=== PATIENT | male | born 1970 | race African-American/Black ===

== ENCOUNTER 2020-05-02 22:58 | Inpatient (IN) | payer MEDICAID ==
[~2020-05-02] VITALS: Ht 185.4 cm; Wt 149.7 kg
[2020-05-02 23:54] LABS: BASOPHILS % 1.2 % (0.0-2.0); HEMOGLOBIN. 14.8 g/dL (14.0-18.0); LYMPHOCYTES % 45.7 % (20.0-50.0); MEAN CORPUSCULAR HEMOGLOBIN 31.6 pg (28.0-32.0); MEAN CORPUSCULAR VOLUME 94.2 fL (80.0-94.0); MONOCYTES % 6.2 % (2.0-8.0); NEUTROPHILS % 42.9 % (40.0-76.0); PLATELET 251 x1000/uL (130-400); RED BLOOD CELL COUNT 4.67 mill/uL (4.7-6.1); RED CELL DISTRIBUTION WIDTH 13.5 % (11.6-14.6)
[2020-05-02 23:59] LABS: CHLORIDE 107 mEq/L (98-107)
[2020-05-03] MEDS ORDERED: NITROGLYCERIN OINT 1GM/INCH UDPKT TD ONE
[2020-05-03] MEDS ORDERED: ASPIRIN 325MG EC TABLET PO ONE
[2020-05-03] MEDS ORDERED: METOPROLOL TARTRATE 25MG TABLET PO ONE (01:00)
[2020-05-03 09:03] VITALS: BP 164/94
[2020-05-03] MEDS ORDERED: HYDROCODONE/ACETAMINOPHEN 5/325MG TABLET PO PRN (09:15)
[2020-05-03] MEDS ORDERED: CLONIDINE 0.1MG TABLET PO PRN (09:15)
[2020-05-03] MEDS ORDERED: ACETAMINOPHEN 325MG TABLET PO PRN ×2 (09:15)
[2020-05-03] MEDS ORDERED: ONDANSETRON HCL 4MG/2ML INJ IV PRN (09:15)
[2020-05-03] MEDS ORDERED: IPRATROPIUM/ALBUTEROL 0.5-3(2.5)MG/3ML NEB HHN PRN (09:15)
[2020-05-03] MEDS ORDERED: LORAZEPAM 0.5MG TABLET PO PRN (09:15)
[2020-05-03] MEDS ORDERED: DOCUSATE SODIUM 100MG CAPSULE PO PRN (09:15)
[2020-05-03 09:30] VITALS: BP 164/94
[2020-05-03 12:00] VITALS: BP 155/91
[2020-05-03 12:05] VITALS: BP 155/91
[2020-05-03] MEDS: ASPIRIN 81MG TABLET PO SCH (13:12)
[2020-05-03] MEDS: AMLODIPINE 5MG TABLET PO SCH (13:13)
[2020-05-03 16:08] VITALS: BP 142/85
[2020-05-03 20:00] VITALS: BP 151/76
[2020-05-04] VITALS: BP 124/77
[2020-05-04 04:00] VITALS: BP 122/78
[2020-05-04 04:52] VITALS: BP 122/88
[2020-05-04 06:46] LABS: BASOPHILS % 0.7 % (0.0-2.0); EOSINOPHILS % 5.1 % (0.0-5.0); HEMATOCRIT. 43.2 % (42.0-52.0); HEMOGLOBIN. 14.5 g/dL (14.0-18.0); LYMPHOCYTES % 48.1 % (20.0-50.0); MEAN CORPUSCULAR HEMOGLOBIN 31.3 pg (28.0-32.0); MEAN CORPUSCULAR VOLUME 93.5 fL (80.0-94.0); MEAN PLATELET VOLUME 7.9 fl (7.4-10.4); MONOCYTES % 8.4 % (2.0-8.0); NEUTROPHILS % 37.7 % (40.0-76.0); PLATELET 235 x1000/uL (130-400); RED BLOOD CELL COUNT 4.62 mill/uL (4.7-6.1); RED CELL DISTRIBUTION WIDTH 13.7 % (11.6-14.6)
[2020-05-04 07:51] LABS: CHLORIDE 104 mEq/L (98-107)
[2020-05-04 08:00] VITALS: BP 149/95
[2020-05-04] MEDS: ASPIRIN 81MG TABLET PO SCH (08:55)
[2020-05-04] MEDS: AMLODIPINE 5MG TABLET PO SCH (08:56)
[2020-05-04] MEDS ORDERED: ASPI-1160 PO (11:48)
[2020-05-04] MEDS ORDERED: AMLO5TAB88 PO (11:48)
[2020-05-04 12:00] VITALS: BP 126/89
[2020-05-04 13:47] VITALS: BP 126/89
== END 2020-05-04 15:20 | disposition home or self-care (01) | DRG 203 ==
LOC: ER 22:58 → 6WST 05-03 01:11 → EDBEDREQ 05-03 01:14 → EDBEDREQTM 05-03 01:14 → EDBEDREQDT 05-03 01:14 → ENRESERV 05-03 07:31
PROVIDERS: ADMIT Internal Medicine; ATTEND Internal Medicine
DX: M94.0 Chondrocostal junction syndrome [Tietze] (principal); R07.89 Other chest pain; I10 Essential (primary) hypertension; E11.9 Type 2 diabetes mellitus without complications; E78.5 Hyperlipidemia, unspecified; R00.1 Bradycardia, unspecified; E66.01 Morbid (severe) obesity due to excess calories; Z68.41 Body mass index [BMI] 40.0-44.9, adult; Z98.84 Bariatric surgery status; I16.0 Hypertensive urgency; E83.51 Hypocalcemia
CPT/HCPCS: 36415; 71045; 80048; 80053; 80061; 83036; 83880; 84484; 85025; 85379; 93005; 93306; 99285